=== PATIENT | female | born 1950 | race Caucasian/White ===

== ENCOUNTER 2019-12-03 07:00 | Inpatient (IN) | payer MEDICARE, BC ==
[~2019-12-03] VITALS: Ht 167.6 cm; Wt 105.3 kg
[~2019-12-03 07:00] MED LIST: BACITRACIN 50,000 UNIT ONE; BUPIVACAINE/PF 0.5% ONE; EPINEPHRINE 1 MG/ML, 1ML ONE; VANCOMYCIN 1,000 MG ONE
[2019-12-03] MEDS ORDERED: SUCCINYLCHOLINE 20 MG/ML, 10ML ONE (07:59)
[2019-12-03] MEDS ORDERED: DEXAMETHASONE 4 MG/ML, 1ML ONE (07:59)
[2019-12-03] MEDS ORDERED: ONDANSETRON 2MG/ML, 2ML ONE (07:59)
[2019-12-03] MEDS ORDERED: SODIUM CHLORIDE 0.9% PF 10ML ONE ×2 (07:59→13:16)
[2019-12-03] MEDS ORDERED: CEFAZOLIN 1,000 MG ONE (07:59)
[2019-12-03] MEDS ORDERED: FENTANYL PF 250 MCG/5ML ONE (07:59)
[2019-12-03] MEDS ORDERED: LIDOCAINE-MPF 2% ,5ML ONE (07:59)
[2019-12-03] MEDS ORDERED: PROPOFOL 10 MG/ML, 20ML ONE (07:59)
[2019-12-03] MEDS ORDERED: OXYC10TA47 PO (08:32)
[2019-12-03] MEDS ORDERED: ROSU10TA2 PO (08:32)
[2019-12-03] MEDS ORDERED: TRAM50TA2 PO (08:32)
[2019-12-03 08:53] VITALS: BP 131/85
[2019-12-03] MEDS ORDERED: ACETAMINOPHEN 500 MG TABLET PO ONE (09:00)
[2019-12-03] MEDS ORDERED: HYDROmorphone 1 MG/ML, 1ML INJ IVPush PRN (09:30)
[2019-12-03] MEDS ORDERED: EPHEDRINE 50 MG/ML, 1ML IVPush PRN (09:30)
[2019-12-03] MEDS ORDERED: OXYcodone 5 MG/5 ML ORAL.SOL UDC PO PRN (09:30)
[2019-12-03] MEDS ORDERED: PROMETHAZINE 25 MG/ML, 1ML IV PRN (09:30)
[2019-12-03] MEDS ORDERED: MEPERIDINE/PF 25MG/ML,1ML IVPush PRN (09:30)
[2019-12-03] MEDS ORDERED: hydrALAzine 20 MG/ML, 1ML IV PRN (09:30)
[2019-12-03] MEDS ORDERED: LABETALOL 5MG/ML, 20ML IV PRN (09:30)
[2019-12-03] MEDS ORDERED: ONDANSETRON 2MG/ML, 2ML IV PRN ×2 (09:30→14:30)
[2019-12-03] MEDS ORDERED: LACTATED RINGERS 1,000 ML IV SCH (10:00)
[2019-12-03] MEDS ORDERED: FENTANYL PF 100 MCG/2ML ONE ×2 (11:13→12:30)
[2019-12-03] MEDS ORDERED: OXYcodone 5 MG/5 ML ORAL.SOL UDC ONE (12:30)
[2019-12-03] MEDS: FENTANYL PF 100 MCG/2ML IV PRN ×2 (12:33→12:49)
[2019-12-03] MEDS ORDERED: HYDROmorphone 2 MG/ML, 1ML ONE (12:50)
[2019-12-03] MEDS ORDERED: METHOCARBAMOL 1000MG/10 ML IVPB STA (13:05)
[2019-12-03] MEDS ORDERED: DIPHENHYDRAMINE 50 MG/ML, 1ML ONE (13:06)
[2019-12-03] MEDS ORDERED: DIPHENHYDRAMINE 50 MG/ML, 1ML IVPush PRN ×2 (13:30→14:30)
[2019-12-03] MEDS ORDERED: METHOCARBAMOL 1,000 MG in DEXTROSE 5% 100 ML IV ONE (13:30)
[2019-12-03] MEDS ORDERED: MAGNESIUM HYDROXIDE 8%, 30ML UDC PO PRN (14:30)
[2019-12-03] MEDS ORDERED: BISACODYL 10 MG SUPP PR PRN (14:30)
[2019-12-03] MEDS ORDERED: PROMETHAZINE 25 MG/ML, 1ML IM PRN (14:30)
[2019-12-03] MEDS ORDERED: DIPHENHYDRAMINE 50 MG/ML, 1ML IM PRN (14:30)
[2019-12-03] MEDS ORDERED: OXYcodone/APAP 5/325MG TABLET PO PRN ×2 (14:30→14:37)
[2019-12-03] MEDS ORDERED: HYDROmorphone 2MG TABLET PO PRN (15:00)
[2019-12-03] MEDS ORDERED: HYDROmorphone 2 MG/ML, 1ML IM PRN (15:00)
[2019-12-03] MEDS: D5%-0.9% NACL+KCL 20MEQ 1,000 ML IV SCH (15:32)
[2019-12-03] MEDS: OXYcodone/APAP 10/325MG TABLET PO PRN ×2 (16:51→20:49)
[2019-12-03] MEDS: CEFAZOLIN PMX 1GM/50ML 50 ML IVPB SCH (16:52)
[2019-12-03] MEDS: DIPHENHYDRAMINE 25 MG CAPSULE PO PRN ×2 (16:52→20:52)
[2019-12-03 19:21] VITALS: BP 121/69
[2019-12-03] MEDS: ATORVASTATIN 40 MG TABLET PO SCH (20:48)
[2019-12-04] MEDS: CEFAZOLIN PMX 1GM/50ML 50 ML IVPB SCH (00:43)
[2019-12-04] MEDS: OXYcodone/APAP 10/325MG TABLET PO PRN ×5 (01:56→20:11)
[2019-12-04] MEDS: D5%-0.9% NACL+KCL 20MEQ 1,000 ML IV SCH ×3 (02:00→22:00)
[2019-12-04 03:59] VITALS: BP 98/63
[2019-12-04 05:38] LABS: BASOPHILS # (AUTO) 0.01 x10^3/uL (0-0.1); BASOPHILS % (AUTO) 0 % (0-1); EOSINOPHILS % (AUTO) 0 % (1-7); LYMPHOCYTES # (AUTO) 1.29 x10^3/uL (1-3.4); LYMPHOCYTES % (AUTO) 13 % (22-44); MD NO; MEAN CORPUSCULAR HEMOGLOBIN 30.1 pg (27.0-34.8); MEAN CORPUSCULAR HGB CONC 33.4 g/dL (32.4-35.8); MEAN CORPUSCULAR VOLUME 90.2 fL (80-100); MONOCYTES # (AUTO) 0.84 x10^3/uL (0.2-0.8); MONOCYTES % (AUTO) 8 % (2-9); NEUTROPHILS # (AUTO) 8.15 x10^3/uL (1.8-6.8); NEUTROPHILS % (AUTO) 79 % (42-75); PLATELET COUNT 175 x10^3/uL (130-400); RED BLOOD COUNT 3.87 x10^6/uL (3.82-5.3); RED CELL DISTRIBUTION WIDTH 14.1 % (9.6-15.2)
[2019-12-04] MEDS: DIPHENHYDRAMINE 25 MG CAPSULE PO PRN ×4 (05:41→20:10)
[2019-12-04 05:42] LABS: ALBUMIN 3.1 g/dL (3.4-5.0); ANION GAP 6 mmol/L (5-15); CALCIUM 8.7 mg/dL (8.5-10.1); CHLORIDE 108 mmol/L (98-107); CREATININE 0.79 mg/dL (0.55-1.02)
[2019-12-04] MEDS: ENOXAPARIN 40 MG/0.4 ML SQ SCH (05:42)
[2019-12-04 07:28] VITALS: BP 104/68
[2019-12-04] MEDS: METHOCARBAMOL 750 MG TABLET PO PRN ×2 (07:38→20:24)
[2019-12-04] MEDS: SENNA/DOCUSATE TABLET PO SCH (07:38)
[2019-12-04 12:16] VITALS: BP 109/66
[2019-12-04 19:25] VITALS: BP 100/63
[2019-12-04] MEDS: ATORVASTATIN 40 MG TABLET PO SCH (20:10)
[2019-12-05] MEDS: DIPHENHYDRAMINE 25 MG CAPSULE PO PRN ×3 (00:23→10:05)
[2019-12-05] MEDS: OXYcodone/APAP 10/325MG TABLET PO PRN ×3 (00:24→10:04)
[2019-12-05 02:43] VITALS: BP 106/68
[2019-12-05] MEDS: ENOXAPARIN 40 MG/0.4 ML SQ SCH (05:52)
[2019-12-05] MEDS: METHOCARBAMOL 750 MG TABLET PO PRN (06:43)
[2019-12-05 07:39] VITALS: BP 105/61
[2019-12-05] MEDS: D5%-0.9% NACL+KCL 20MEQ 1,000 ML IV SCH (08:00)
[2019-12-05] MEDS: SENNA/DOCUSATE TABLET PO SCH (09:29)
== END 2019-12-05 13:10 | disposition home health service (06) | DRG 454 ==
LOC: ORIP 07:34 → 4NE 14:04 → DCLOUNGE 12-05 12:55
PROVIDERS: ADMIT Neurological Surgery; ATTEND Neurological Surgery
PROC: 01NB0ZZ Release Lumbar Nerve, Open Approach (ICD-10-PCS; 2019-12-03)
PROC: 0SG00A0 Fusion of Lumbar Vertebral Joint with Interbody Fusion Device, Anterior Approach, Anterior Column, Open Approach (ICD-10-PCS; 2019-12-03)
PROC: 0SB20ZZ Excision of Lumbar Vertebral Disc, Open Approach (ICD-10-PCS; 2019-12-03)
PROC: 0SG0071 Fusion of Lumbar Vertebral Joint with Autologous Tissue Substitute, Posterior Approach, Posterior Column, Open Approach (ICD-10-PCS; principal; 2019-12-03 09:30)
DX: M48.061 Spinal stenosis, lumbar region without neurogenic claudication (principal); M51.06 Intervertebral disc disorders with myelopathy, lumbar region; M51.16 Intervertebral disc disorders with radiculopathy, lumbar region; M53.2X6 Spinal instabilities, lumbar region; E66.01 Morbid (severe) obesity due to excess calories; M19.90 Unspecified osteoarthritis, unspecified site; Z82.61 Family history of arthritis; Z88.8 Allergy status to other drugs, medicaments and biological substances; Z68.37 Body mass index [BMI] 37.0-37.9, adult; Z98.1 Arthrodesis status
CPT/HCPCS: 36415; 72100; 80048; 82040; 85025; C1713; C1729; C1776; G0378; J0171; J0690; J1100; J1170; J1650; J2405; J2704; J3010; J3370; C1763; J0330; J2800; J3480; J7120; Q0163